=== PATIENT | female | born 1990 | race African-American/Black ===

== ENCOUNTER 2016-04-20 17:57 | Emergency (ER) | payer OTHER ==
[~2016-04-20 17:57] MED LIST: COLA100C PO; MOTR200T44 PO; OXYC1TAB23 PO; PRENTAB9 PO
[2016-04-20 18:40] LABS: BASO % 0.3 % (0.0-1.0); EOS # 0.2 K/mm3 (0.0-0.50); EOS % 2.9 % (0.0-3.0); LARGE UNSTAINED CELL # 0.1 K/mm3 (0.0-0.4); LARGE UNSTAINED CELL % 1.2 % (0.0-4.0); LYMPH # 2.1 K/mm3 (1.5-6.5); LYMPH % 26.5 % (24.0-44.0); MEAN CORPUSCULAR HEMOGLOBIN 27.4 pg (27.0-33.0); MEAN CORPUSCULAR HGB CONC 32.5 g/dl (32.0-36.5); MEAN CORPUSCULAR VOLUME 84.4 fl (80.0-96.0); MONO # 0.3 K/mm3 (0.0-0.8); MONO % 4.4 % (0.0-5.0); NEUTROPHILS # 5.1 K/mm3 (1.8-7.7); NEUTROPHILS % 64.8 % (36.0-66.0); PLATELET COUNT, AUTOMATED 311 k/mm3 (150-450); WHITE BLOOD COUNT 7.9 K/mm3 (4.0-10.0)
[2016-04-20 18:56] LABS: CONTROL LINE HCG INT CTR LINE PRESENT
[2016-04-20 19:10] LABS: ALBUMIN 4.4 GM/DL (3.2-5.2); ALBUMIN/GLOBULIN RATIO 1.19 (1.00-1.93); ALKALINE PHOSPHATASE 160 U/L (45-117); ALT/SGPT 33 U/L (12-78); ANION GAP 10 MEQ/L (8-16); AST/SGOT 32 U/L (15-37); BLOOD UREA NITROGEN 9 MG/DL (7-18); CALCIUM LEVEL 9.5 MG/DL (8.5-10.1); CARBON DIOXIDE LEVEL 24 MEQ/L (21-32); CHLORIDE LEVEL 109 MEQ/L (98-107); CREATININE FOR GFR 0.92 MG/DL (0.55-1.02); GLOMERULAR FILTRATION RATE > 60.0 (>60); GLUCOSE, FASTING 82 MG/DL (70-105); SODIUM LEVEL 143 MEQ/L (136-145); TOTAL PROTEIN 8.1 GM/DL (6.4-8.2)
[2016-04-20 19:14] LABS: CONTROL LINE INT CTR LINE PRESENT
[2016-04-21] MEDS ORDERED: cefTRIAXone SOD 250 MG VIAL (J0696) As Ordered ONE (01:16)
[2016-04-21] MEDS ORDERED: metroNIDAZOLE (FLAGYL) 500 MG TAB As Ordered ONE (01:16)
[2016-04-21] MEDS ORDERED: LIDOCAINE 1% MDV 20ML VIAL As Ordered ONE (01:16)
[2016-04-21] MEDS ORDERED: AZITHROMYCIN 250 MG TAB As Ordered ONE (01:16)
[2016-04-21] MEDS ORDERED: EXPOSURE KIT-ADULT 7 DAY SUPPLY As Ordered ONE (01:16)
[2016-04-21] MEDS ORDERED: ULIPRISTAL ACETATE 30 MG TAB (ELLA) As Ordered ONE (01:17)
[2016-04-21] MEDS ORDERED: ONDANSETRON 4 MG ORAL DISINTEGRATING TAB (S0181) As Ordered ONE (01:23)
[2016-04-21 10:49] LABS: HEPATITIS B SURFACE ANTIBODY POSITIVE (POSITIVE)
== END 2016-04-21 01:59 | disposition home or self-care (01) ==
LOC: M ED 17:57
DX: Z04.41 Encounter for examination and observation following alleged adult rape (principal); F17.200 Nicotine dependence, unspecified, uncomplicated
CPT/HCPCS: 36415; 80053; 84703; 85025; 86706; 86780; 86803; 87210; 87340; 87491; 87591; 87806; 96372; 99283; G0480; J0696

== ENCOUNTER 2016-09-23 18:36 | Emergency (ER) | payer OTHER ==
[~2016-09-23] VITALS: Ht 165.1 cm; Wt 66.0 kg
[~2016-09-23 18:36] MED LIST changes: -COLA100C PO; +COLA100C5 PO
[2016-09-23 20:01] VITALS: BP 132/77
== END 2016-09-23 20:12 | disposition home or self-care (01) ==
LOC: MERGE 18:36 → M ED 18:36
DX: F43.8 Other reactions to severe stress (principal); F17.210 Nicotine dependence, cigarettes, uncomplicated

== ENCOUNTER 2017-04-17 18:24 | Emergency (ER) | payer OTHER ==
[2017-04-17] MEDS: KETOROLAC 30 MG/ML VIAL (J1885) IV (19:55)
[2017-04-17 20:54] LABS: ANION GAP 6 MEQ/L (8-16); BLOOD UREA NITROGEN 11 MG/DL (7-18); CALCIUM LEVEL 9.2 MG/DL (8.5-10.1); CARBON DIOXIDE LEVEL 27 MEQ/L (21-32); CHLORIDE LEVEL 109 MEQ/L (98-107); CREATININE FOR GFR 0.98 MG/DL (0.55-1.30); GLOMERULAR FILTRATION RATE > 60.0 (>60); GLUCOSE, FASTING 80 MG/DL (70-100); POTASSIUM SERUM 3.8 MEQ/L (3.5-5.1); SODIUM LEVEL 142 MEQ/L (136-145)
== END 2017-04-17 21:02 | disposition left against medical advice (07) ==
LOC: M ED 18:24
DX: J02.9 Acute pharyngitis, unspecified (principal); F17.210 Nicotine dependence, cigarettes, uncomplicated
CPT/HCPCS: J1885

== ENCOUNTER → 2017-06-02 | Outpatient (CLI) | payer OTHER, MEDICAID | LOC: M OUTALCOH 08:00 | DX: F10.10 Alcohol abuse, uncomplicated (principal) ==